=== PATIENT | female | born 1980 | race African-American/Black ===

== ENCOUNTER 2017-10-08 00:45 | Emergency (ER) | payer BC ==
[~2017-10-08] VITALS: Ht 152.4 cm; Wt 57.0 kg
[2017-10-08] MEDS ORDERED: BACITRACIN ZINC OINT UDPKT TOP ONE (02:15)
[2017-10-08] MEDS ORDERED: TETANUS, DIPHTHERIA, PERTUSSIS VAC/PF 0.5ML (>7YR OLD) IM ONE (02:15)
[2017-10-08 02:20] VITALS: BP 133/74
== END 2017-10-08 02:29 | disposition home or self-care (01) ==
LOC: ER 01:01
DX: T23.101A Burn of first degree of right hand, unspecified site, initial encounter (principal); T20.07XA Burn of unspecified degree of neck, initial encounter; T79.9XXA Unspecified early complication of trauma, initial encounter; X08.8XXA Exposure to other specified smoke, fire and flames, initial encounter; Y93.89 Activity, other specified; Y92.89 Other specified places as the place of occurrence of the external cause; Y99.8 Other external cause status
CPT/HCPCS: 16000; 90471; 90715; 99283; 99284